=== PATIENT | female | born 1985 ===

== ENCOUNTER 2021-03-01 15:13 | Outpatient (CLI) | payer OTHER | END 2021-03-01 16:20 | disposition home or self-care (01) | LOC: PRENATAL 15:13 | PROVIDERS: ATTEND Obstetrics & Gynecology Maternal & Fetal Medicine | DX: O35.0XX1 Maternal care for (suspected) central nervous system malformation in fetus, fetus 1 (principal); O35.3XX1 Maternal care for (suspected) damage to fetus from viral disease in mother, fetus 1; O98.512 Other viral diseases complicating pregnancy, second trimester; Z36.89 Encounter for other specified antenatal screening; Z3A.23 23 weeks gestation of pregnancy ==

== ENCOUNTER 2021-04-06 18:32 | Emergency (ER) | payer OTHER ==
[~2021-04-06] VITALS: Ht 165.1 cm; Wt 86.2 kg
== END 2021-04-07 14:35 ==
LOC: ER 18:32
DX: U07.1 COVID-19 (principal); Z3A.29 29 weeks gestation of pregnancy

== ENCOUNTER 2021-04-07 16:30 | Outpatient (CLI) | payer OTHER | END 2021-04-07 18:30 | disposition home or self-care (01) | LOC: ASH CLINIC 16:30 | PROVIDERS: ATTEND General Practice | DX: Z23 Encounter for immunization (principal); U07.1 COVID-19 ==

== ENCOUNTER 2021-05-09 09:40 | Inpatient (IN) | payer OTHER ==
[~2021-05-09] VITALS: Ht 165.1 cm; Wt 89.8 kg
[2021-05-09] MEDS ORDERED: PRENATA CHEWAB1 EACH PO (15:37)
== END 2021-05-10 14:13 | disposition home or self-care (01) | DRG 832 ==
LOC: LDR 09:40
PROVIDERS: ADMIT Obstetrics & Gynecology Obstetrics; ATTEND Obstetrics & Gynecology Obstetrics
PROC: 4A1HXFZ Monitoring of Products of Conception, Cardiac Rhythm, External Approach (ICD-10-PCS; principal; 2021-05-09)
DX: O23.43 Unspecified infection of urinary tract in pregnancy, third trimester (principal); N39.0 Urinary tract infection, site not specified; Z3A.33 33 weeks gestation of pregnancy

== ENCOUNTER 2021-06-13 12:29 | Inpatient (IN) | payer OTHER ==
[~2021-06-13] VITALS: Ht 157.5 cm; Wt 3.2 kg
[~2021-06-13 12:29] MED LIST: PRENATA CHEWAB1 EACH PO
== END 2021-06-16 14:35 | disposition home or self-care (01) | DRG 785 ==
LOC: SURH 12:29 → OB/GYN 17:04 → LDR 17:04 → OB/GYN 19:12
PROVIDERS: ADMIT Obstetrics & Gynecology Obstetrics; ATTEND Obstetrics & Gynecology Obstetrics
PROC: 0UB70ZZ Excision of Bilateral Fallopian Tubes, Open Approach (ICD-10-PCS; 2021-06-13)
PROC: 4A1HXFZ Monitoring of Products of Conception, Cardiac Rhythm, External Approach (ICD-10-PCS; 2021-06-13)
PROC: 10D00Z1 Extraction of Products of Conception, Low, Open Approach (ICD-10-PCS; principal; 2021-06-13 17:15)
DX: O34.211 Maternal care for low transverse scar from previous cesarean delivery (principal); O82 Encounter for cesarean delivery without indication; Z30.2 Encounter for sterilization; Z37.0 Single live birth; Z3A.39 39 weeks gestation of pregnancy

== ENCOUNTER 2021-07-02 19:26 | Inpatient (IN) | payer OTHER ==
[~2021-07-02] VITALS: Ht 165.1 cm; Wt 79.4 kg
--- NOTE | 2021-07-02 19:29 | NUR ---
PTE SE FUE.
--- NOTE | 2021-07-02 19:40 | NUR ---
PTE SE RECIBE POR DOLOR DE ESTOMAGO JOSÉ Y VOMITOS REFIERE PTE.
--- NOTE | 2021-07-02 20:55 | NUR ---
A EVALUA PTE. SE ORIENTA A PTE SOBRE ORDENES MEDICAS Y TRATAMIENTO. SE EXTRAEN MUESTRAS, SE CANALIZA PTE Y SE ADMINISTRAN MEDICAMENTOS BAJO MEDIDAS ASEPTICAS POR XAVIER. SE LE ENTREGA CONTRASTE A PTE Y SE LE ORIENTA SOBRE PROCESO PARA ESTUDIO PENDIENTE. SE LE ENTREGA U/A PARA COLECCION. SE ESPERA POR RESULTADOS DE LABORATORIO.
[2021-07-04] MEDS ORDERED: ULTRACET PO (10:13)
[2021-07-04] MEDS ORDERED: ACETAMINOPHEN500 M2 PO (13:17)
[2021-07-04] MEDS ORDERED: DICLOFENAC SODI50 MG PO (13:17)
== END 2021-07-04 14:02 | disposition home or self-care (01) | DRG 343 ==
LOC: ER 19:26 → SURG 07-03 05:59
PROVIDERS: ADMIT Surgery; ATTEND Surgery
PROC: BW21YZZ Computerized Tomography (CT Scan) of Abdomen and Pelvis using Other Contrast (ICD-10-PCS; 2021-07-03)
PROC: 0DTJ4ZZ Resection of Appendix, Percutaneous Endoscopic Approach (ICD-10-PCS; principal; 2021-07-03 07:15)
DX: K35.890 Other acute appendicitis without perforation or gangrene (principal); R10.31 Right lower quadrant pain; Z20.822 Contact with and (suspected) exposure to COVID-19